=== PATIENT | male | born 1985 | race Caucasian/White ===

== ENCOUNTER → 2016-09-23 | Outpatient (CLI) | payer OTHER ==
--- NOTE | 2016-09-23 07:49 | MR ---
EXAMINATION TYPE: MR lumbar spine wo con DATE OF EXAM: 09/23/2016 7:42 AM COMPARISON: NONE HISTORY: Lumbago, left hip and back pain TECHNIQUE: Multiplanar, multisequence images of the lumbar spine were acquired. L1-L2: Normal disc appearance without desiccation. No herniation, protrusion or disc bulging. No ca nal stenosis is present. Foramina are patent bilaterally. L2-L3: Normal disc appearance without desiccation. No herniation, protrusion or disc bulging. No ca nal stenosis is present. Foramina are patent bilaterally. L3-L4: Normal disc appearance without desiccation. No herniation, protrusion or disc bulging. No ca nal stenosis is present. Foramina are patent bilaterally. L4-L5: There is mild decreased signal ossified compatible with degenerative disc disease. Mild home care nurse ior disc bulge without disc herniation or protrusion. No evidence for central stenosis or foraminal e ncroachment. Superior endplate L5 Schmorl node. L5-S1: Normal disc appearance without desiccation. No herniation, protrusion or disc bulging. No ca nal stenosis is present. Foramina are patent bilaterally. Lumbar segments are intact. No paraspinal masses are identified. Conus medullaris has a normal appe arance. IMPRESSION: Degenerative disc disease with mild posterior disc bulge at L4-5.
== END ==
LOC: RADMRIMAIN 06:52
PROVIDERS: ATTEND Psychiatry & Neurology Neurology
DX: M51.26 Other intervertebral disc displacement, lumbar region (principal); M51.36 Other intervertebral disc degeneration, lumbar region
CPT/HCPCS: 72148

== ENCOUNTER → 2016-10-01 | Outpatient (CLI) | payer OTHER ==
--- NOTE | 2016-10-01 14:35 | XR ---
EXAMINATION TYPE: XR chest 2V DATE OF EXAM: 10/01/2016 2:24 PM COMPARISON: NONE HISTORY: Chest pain TECHNIQUE: Frontal and lateral views of the chest are obtained. FINDINGS: There is no focal air space opacity. No evidence for pnuemothorax.No pleural effusion. The cardiac silhouette size is within normal limits. The osseous structures are grossly intact. IMPRESSION: 1. No acute cardiopulmonary process.
== END ==
LOC: RADXRMAIN 14:11
PROVIDERS: ATTEND Family Medicine
DX: J45.909 Unspecified asthma, uncomplicated (principal)
CPT/HCPCS: 71020; 82043; 83036

== ENCOUNTER 2016-10-17 17:57 | Emergency (ER) | payer OTHER ==
[2016-10-17 18:57] LABS: Glucose,Whole Blood 217 mg/dL (75-99)
[2016-10-17] MEDS ORDERED: SODIUM CHLORIDE 0.9% 1,000 ML IV STA (19:15)
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
[2016-10-17 19:39] LABS: Basophils # (A) 0.1 k/uL (0-0.2); Basophils % (A) 1 %; CH 32.2; CHCM 33.6; Eosinophils # (A) 0.1 k/uL (0-0.7); Eosinophils % (A) 1 %; HCT 56.3 % (39.0-53.0); HDW 2.46; HGB 18.6 gm/dL (13.0-17.5); Luc # (Auto) 0.27; Luc % (Auto) 2; Lymphocytes # (A) 2.6 k/uL (1.0-4.8); Lymphocytes % (A) 22 %; MCH 31.8 pg (25.0-35.0); MCV 96.5 fL (80.0-100.0); Monocytes # (A) 0.8 k/uL (0-1.0); Monocytes % (A) 7 %; Neutrophils # (A) 8.2 k/uL (1.3-7.7); Neutrophils % (A) 68 %; RBC 5.83 m/uL (4.30-5.90); RDW 13.8 % (11.5-15.5); WBC 12.1 k/uL (3.8-10.6); WBC (Perox) 12.18
[2016-10-17 19:47] LABS: ALT 70 U/L (21-72); AST 117 U/L (17-59); Alkaline Phosphatase 34 U/L (38-126); Anion Gap 10 mmol/L; Blood Urea Nitrogen 11 mg/dL (9-20); Calcium 9.4 mg/dL (8.4-10.2); Carbon Dioxide 27 mmol/L (22-30); Chloride 98 mmol/L (98-107); Glucose 218 mg/dL (74-99); Non-African American GFR(MDRD) >60 (>60 ml/min/1.73 sqM); Potassium 5.1 mmol/L (3.5-5.1); Sodium 135 mmol/L (137-145); Total Bilirubin 1.1 mg/dL (0.2-1.3); Total Protein 6.7 g/dL (6.3-8.2)
[2016-10-17 20:58] LABS: Glucose,Whole Blood 193 mg/dL (75-99)
[2016-10-17 21:10] VITALS: BP 135/70; PULSE 76; RESP 18; TEMP 97.5
== END 2016-10-17 21:22 | disposition home or self-care (01) ==
LOC: EC 17:57
DX: I95.1 Orthostatic hypotension (principal); S80.01XA Contusion of right knee, initial encounter; T22.021A Burn of unspecified degree of right elbow, initial encounter; T31.0 Burns involving less than 10% of body surface; M25.569 Pain in unspecified knee; E11.9 Type 2 diabetes mellitus without complications; F41.9 Anxiety disorder, unspecified; F17.200 Nicotine dependence, unspecified, uncomplicated; Z88.6 Allergy status to analgesic agent; Z88.8 Allergy status to other drugs, medicaments and biological substances; Z79.84 Long term (current) use of oral hypoglycemic drugs; Z79.899 Other long term (current) drug therapy; X15.0XXA Contact with hot stove (kitchen), initial encounter; X58.XXXA Exposure to other specified factors, initial encounter
CPT/HCPCS: 16020; 36415; 80053; 84484; 85025; 93005; 96360; 96361; 99284

== ENCOUNTER 2018-03-26 14:22 | Emergency (ER) | payer BC, OTHER ==
[2018-03-26 14:37] VITALS: BP 143/92; TEMP 99
[2018-03-26] MEDS ORDERED: IPRATROPIUM-ALBUTEROL 3 ML NEB INHALATION ONE (15:09)
[2018-03-26] MEDS ORDERED: predniSONE 20 MG TAB PO STA (15:11)
--- NOTE | 2018-03-26 15:17 | ED ---
General Adult HPI - General Chief complaint: Upper Respiratory Infection Stated complaint: Congested, Body Aches-sent by [facility] [employer] Time Seen by Provider: 03/26/18 15:01 Source: patient Mode of arrival: ambulatory Limitations: no limitations - History of Present Illness Initial comments: 32-year-old male presents with a chief complaint of an upper respiratory infection since Thursday. Patient denies any sick contacts and states she cannot identify inciting incident. Patient states that he has been somewhat short of breath and has had a productive cough with green sputum. He denies any fever though he states he has had chills. Patient is a pack per day smoker , has a medical history of diabetes type 2, hypertension, and hyperlipidemia. No history of heart attacks or strokes - Related Data Home Medications Medication Instructions Recorded Confirmed ALPRAZolam [Xanax] 1 tab PO TID 08/03/15 03/26/18 metFORMIN HCL [Glucophage] 500 mg PO BID 10/17/16 03/26/18 Lisinopril [Prinivil] 5 mg PO DAILY 03/26/18 03/26/18 Rosuvastatin Calcium [Crestor] 10 mg PO DAILY 03/26/18 03/26/18 Previous Rx's Medication Instructions Recorded Albuterol Inhaler [Ventolin Hfa 1 - 2 puff INHALATION Q4H #1 03/26/18 Inhaler] inhaler Doxycycline Hyclate 100 mg PO Q12H 7 Days #13 tab 03/26/18 predniSONE 60 mg PO DAILY 4 Days #12 tab 03/26/18 Allergies Allergy/AdvReac Type Severity Reaction Status Date / Time sulfamethoxazole Allergy Unknown Verified 03/26/18 14:54 [From Bactrim] trimethoprim [From Bactrim] Allergy Unknown Verified 03/26/18 14:54 ibuprofen [From Motrin] AdvReac Muscle Verified 03/26/18 14:54 Spasm naproxen AdvReac Nausea & Verified 03/26/18 14:54 Vomiting Review of Systems ROS Statement: Those systems with pertinent positive or pertinent negative responses have been documented in the HPI. ROS Other: All systems not noted in ROS Statement are negative. Respiratory: Reports: cough Cardiovascular: Reports: dyspnea on exertion Musculoskeletal: Reports: myalgia Past Medical History Past Medical History: Diabetes Mellitus, Hyperlipidemia, Hypertension History of Any Multi-Drug Resistant Organisms: None Reported Additional Past Surgical History / Comment(s): hip surgery Past Anesthesia/Blood Transfusion Reactions: Unable to Obtain Past Psychological History: Anxiety Smoking Status: Current every day smoker Past Alcohol Use History: None Reported Past Drug Use History: None Reported General Exam Limitations: no limitations General appearance: alert, in no apparent distress Head exam: Present: atraumatic, normocephalic Eye exam: Present: normal appearance ENT exam: Present: normal exam, mucous membranes moist, TM's normal bilaterally Neck exam: Present: normal inspection Respiratory exam: Present: wheezes. Absent: respiratory distress Cardiovascular Exam: Present: regular rate, normal rhythm GI/Abdominal exam: Present: soft. Absent: distended, tenderness Rectal exam: Present: deferred Extremities exam: Present: normal inspection Back exam: Present: normal inspection Neurological exam: Present: alert, oriented X3 Psychiatric exam: Present: normal affect, normal mood Skin exam: Present: warm, dry, intact Course Vital Signs 03/26/18 03/26/18 03/26/18 14:33 15:21 15:53 Temperature 99 F Pulse Rate 98 90 88 Respiratory 16 20 18 Rate Blood Pressure 143/92 O2 Sat by Pulse 94 L Oximetry 03/26/18 18:00 Temperature Pulse Rate Respiratory Rate Blood Pressure O2 Sat by Pulse 94 L Oximetry Medical Decision Making - Medical Decision Making Patient presents with a chief complaint of cough and shortness of breath. On initial evaluation, vital signs are stable though oxygen saturation is 94 on room air. Patient be evaluated with EKG, basic labs, troponin. Patient given breathing treatments and steroids. Patient was sent over by [facility], will review x-ray performed of there. EKG performed at 1528 shows NSR with a rate of 77 bpm. segments appear to be within normal limits, though EKG computed read shows a MI interval of 110. patient without history of palpitations, or family history of cardiac arrhythmia. no signs of wpw, brugada, long QT, or LVH on ekg. 5:15PM CXR from [facility] uploaded. independent review of the image shows a questionable infiltrate in the RLL possibly representing pneumonia. on re-evaluation, patient appears comfortable. mildly improved after breathing treatments and steroids. will ambulate patient to evaluate pulse ox. patient started on doxycycline 6:10 PM Evaluation this patient shows a mildly elevated white count but is otherwise unremarkable. Chest x-ray reviewed. Patient ambulated without shortness of breath. He had a pulse ox of 91% while ambulated, and a pulse ox of 94% when he sat back down. Patient offered a computed tomography scan for better evaluation of the lungs and to evaluate for PE though I think this is unlikely. Patient declining at this time. He was instructed to follow up with primary care in 1-2 days, return to the emergency department if symptoms worsen or change. He was prescribed doxycycline, prednisone, and albuterol inhaler. - Lab Data Result diagrams: 03/26/18 16:00 03/26/18 16:00 Lab Results 03/26/18 03/26/18 03/26/18 Range/Units 16:00 16:00 16:00 WBC 11.7 H (3.8-10.6) k/uL RBC 5.31 (4.30-5.90) m/uL Hgb 16.6 (13.0-17.5) gm/dL Hct 50.7 (39.0-53.0) % MCV 95.5 (80.0-100.0) fL MCH 31.3 (25.0-35.0) pg MCHC 32.7 (31.0-37.0) g/dL RDW 13.2 (11.5-15.5) % Plt Count 287 (150-450) k/uL Neutrophils % 71 % Lymphocytes % 18 % Monocytes % 6 % Eosinophils % 3 % Basophils % 1 % Neutrophils # 8.3 H (1.3-7.7) k/uL Lymphocytes # 2.1 (1.0-4.8) k/uL Monocytes # 0.7 (0-1.0) k/uL Eosinophils # 0.3 (0-0.7) k/uL Basophils # 0.1 (0-0.2) k/uL Sodium 141 (137-145) mmol/L Potassium 4.4 (3.5-5.1) mmol/L Chloride 104 (98-107) mmol/L Carbon Dioxide 24 (22-30) mmol/L Anion Gap 13 mmol/L BUN 9 (9-20) mg/dL Creatinine 0.92 (0.66-1.25) mg/dL Est GFR (CKD-EPI)AfAm >90 (>60 ml/min/1.73 sqM) Est GFR (CKD-EPI)NonAf >90 (>60 ml/min/1.73 sqM) Glucose 300 H (74-99) mg/dL Calcium 9.7 (8.4-10.2) mg/dL Troponin I <0.012 (0.000-0.034) ng/mL Disposition Clinical Impression: Pneumonia Disposition: HOME SELF-CARE Condition: Good Instructions: Upper Respiratory Infection (ED) Prescriptions: Albuterol Inhaler [Ventolin Hfa Inhaler] 1 - 2 puff INHALATION Q4H #1 inhaler Doxycycline Hyclate 100 mg PO Q12H 7 Days #13 tab predniSONE 60 mg PO DAILY 4 Days #12 tab Is patient prescribed a controlled substance at d/c from ED?: No Referrals: Kev Traore MD [Primary Care Provider] - 1-2 days
[2018-03-26 15:54] VITALS: PULSE 88; RESP 18
[2018-03-26 16:13] LABS: Basophils # (A) 0.1 k/uL (0-0.2); Basophils % (A) 1 %; Eosinophils # (A) 0.3 k/uL (0-0.7); Eosinophils % (A) 3 %; HCT 50.7 % (39.0-53.0); HGB 16.6 gm/dL (13.0-17.5); Lymphocytes # (A) 2.1 k/uL (1.0-4.8); Lymphocytes % (A) 18 %; MCH 31.3 pg (25.0-35.0); MCHC 32.7 g/dL (31.0-37.0); MCV 95.5 fL (80.0-100.0); Mean Platelet Volume 7.1; Monocytes # (A) 0.7 k/uL (0-1.0); Monocytes % (A) 6 %; Neutrophils # (A) 8.3 k/uL (1.3-7.7); Neutrophils % (A) 71 %; Platelet Count 287 k/uL (150-450); RBC 5.31 m/uL (4.30-5.90); RDW 13.2 % (11.5-15.5); WBC 11.7 k/uL (3.8-10.6)
[2018-03-26] MEDS ORDERED: IBUPROFEN 800 MG TAB PO STA (16:13)
[2018-03-26] MEDS ORDERED: ACETAMINOPHEN TAB 500 MG TAB PO STA (16:13)
[2018-03-26 16:39] LABS: Anion Gap 13 mmol/L; Blood Urea Nitrogen 9 mg/dL (9-20); Calcium 9.7 mg/dL (8.4-10.2); Carbon Dioxide 24 mmol/L (22-30); Chloride 104 mmol/L (98-107); Glucose 300 mg/dL (74-99); Potassium 4.4 mmol/L (3.5-5.1); Sodium 141 mmol/L (137-145)
[2018-03-26] MEDS ORDERED: DOXYCYCLINE 100 MG CAP PO STA (17:17)
== END 2018-03-26 18:35 | disposition home or self-care (01) ==
LOC: EC 14:22
DX: J18.9 Pneumonia, unspecified organism (principal); E11.9 Type 2 diabetes mellitus without complications; E78.5 Hyperlipidemia, unspecified; I10 Essential (primary) hypertension; F41.9 Anxiety disorder, unspecified; F17.210 Nicotine dependence, cigarettes, uncomplicated; Z79.84 Long term (current) use of oral hypoglycemic drugs; Z79.899 Other long term (current) drug therapy; Z88.2 Allergy status to sulfonamides; Z88.6 Allergy status to analgesic agent
CPT/HCPCS: 36415; 94644; 93005; 80048; 84484; 85025; 99284; J7512

== ENCOUNTER 2022-03-13 10:04 | Day surgery (SDC) | payer OTHER ==
[2022-03-11 14:47] VITALS: BMI 25.4
[~2022-03-13 10:04] MED LIST: HEPARIN SODIUM,PORCINE/PF 5,000 UNIT/0.5 ML SYRINGE SQ PRN; LACTATED RINGERS 1,000 ML IV SCH; Pre Op ABX Message 1 EACH MISC MISCELLANE ONE
--- NOTE | 2022-03-13 10:33 | P.GSHP ---
History of Present Illness H&P Date: 03/13/22 CHIEF COMPLAINT: Back mass HISTORY OF PRESENT ILLNESS: The patient is a 36 year-old male with history of mass along the mid back. He presents today for surgical excision. PAST MEDICAL HISTORY: Please see list. PAST SURGICAL HISTORY: Please see list. MEDICATIONS: Please see list. ALLERGIES: Please see list. SOCIAL HISTORY: Please see list. FAMILY HISTORY: No reports of Crohn disease or ulcerative colitis. REVIEW OF ORGAN SYSTEMS: CONSTITUTIONAL: No reports of fevers or chills. GI: Denies any blood in stools or constipation. PHYSICAL EXAM: VITAL SIGNS: Stable Musculoskeletal: No clubbing cyanosis or edema SKIN: Mid back lesion 3 cm GENERAL: Well developed and in no acute distress. Pleasant. HEENT: No sclera icterus. Extraocular movements grossly intact. Moist buccal mucosa. Head is atraumatic, normocephalic. Hears conversational speech. No nasal drainage. NECK: Supple without lymphadenopathy. No JV distention. CHEST: Non-labored respirations and equal bilateral excursions. CARDIOVASCULAR: Regular rate and rhythm. Palpable 2+ radial pulses. ABDOMEN: Soft. Non-tender. Nondistended. NEUROLOGIC: No focal or lateralizing signs. PSYCH: Appropriate affect. Alert and oriented to person, place and time. ASSESSMENT: 1. Mid back mass PLAN: 1. Will proceed of excision of subcutaneous tumor along the back. 2. DVT prophylaxis. 3. Antibiotic prophylaxis. 4. Time of recovery, at least one week. Past Medical History Past Medical History: Diabetes Mellitus, GERD/Reflux, Hyperlipidemia, Hypertension, Skin Disorder Additional Past Medical History / Comment(s): Psoriasis. History of Any Multi-Drug Resistant Organisms: None Reported Past Surgical History: Orthopedic Surgery Additional Past Surgical History / Comment(s): Bilateral hip surgery. Past Anesthesia/Blood Transfusion Reactions: No Reported Reaction Additional Past Anesthesia/Blood Transfusion Reaction / Comment(s): Mom PONV. Past Psychological History: Anxiety Smoking Status: Current every day smoker Past Alcohol Use History: Occasional Additional Past Alcohol Use History / Comment(s): Smokes 1 pdd since age 17. Past Drug Use History: None Reported - Past Family History Mother Family Medical History: No Reported History Medications and Allergies Home Medications Medication Instructions Recorded Confirmed Type Rosuvastatin Calcium [Crestor] 10 mg PO DAILY 03/26/18 03/11/22 History FLUoxetine HCL [PROzac] 10 mg PO DAILY 03/11/22 03/11/22 History Ixekizumab [Taltz Syringe] 80 mg SQ Q30D 03/11/22 03/11/22 History Multivitamins, Thera [Multivitamin 1 tab PO DAILY 03/11/22 03/11/22 History (formulary)] Omeprazole 20 mg PO DAILY 03/11/22 03/11/22 History Tirzepatide [Mounjaro] 5 mg SQ TH 03/11/22 03/11/22 History Allergies Allergy/AdvReac Type Severity Reaction Status Date / Time sulfamethoxazole Allergy Unknown Verified 03/11/22 14:33 [From Bactrim] trimethoprim [From Bactrim] Allergy Unknown Verified 03/11/22 14:33 ibuprofen [From Motrin] AdvReac Muscle Verified 03/11/22 14:33 Spasm naproxen AdvReac Nausea & Verified 03/11/22 14:33 Vomiting
[2022-03-13] MEDS ORDERED: ACETAMINOPHEN TAB 500 MG TAB PO STA (10:35)
[2022-03-13 10:43] LABS: Glucose,Whole Blood 107 mg/dL (70-110)
[2022-03-13] MEDS ORDERED: ACETAMINOPHEN TAB 500 MG TAB PO ONE (10:53)
[2022-03-13 11:29] LABS: Basophils # (A) 0.1 k/uL (0-0.2); Basophils % (A) 1 %; Eosinophils # (A) 0.3 k/uL (0-0.7); Eosinophils % (A) 2 %; HCT 53.4 % (39.0-53.0); HGB 17.9 gm/dL (13.0-17.5); Lymphocytes % (A) 20 %; MCH 31.2 pg (25.0-35.0); MCHC 33.6 g/dL (31.0-37.0); MCV 92.9 fL (80.0-100.0); Mean Platelet Volume 8.1; Monocytes # (A) 0.7 k/uL (0-1.0); Monocytes % (A) 6 %; Neutrophils # (A) 7.2 k/uL (1.3-7.7); Neutrophils % (A) 69 %; Platelet Count 275 k/uL (150-450); RBC 5.75 m/uL (4.30-5.90); RDW 13.4 % (11.5-15.5); WBC 10.4 k/uL (3.8-10.6)
[2022-03-13] MEDS ORDERED: SUCCINYLCHOLINE CHLORIDE 200 MG/10 ML VIAL IV ONE (12:05)
[2022-03-13] MEDS ORDERED: PROPOFOL 10 MG/ML 20 ML VIAL IV ONE (12:05)
[2022-03-13] MEDS ORDERED: LIDOCAINE 2% INJ 20 MG/ML (2 ML VIAL) ONE (12:05)
[2022-03-13] MEDS ORDERED: MIDAZOLAM 2 MG/2 ML VIAL ONE (12:05)
[2022-03-13] MEDS ORDERED: fentaNYL (PF) 50 MCG/ML 2 ML AMP ONE (12:05)
[2022-03-13] MEDS ORDERED: LIDOCAINE 1%-EPI 1:100,000 20 ML VIAL SQ ONE (12:54)
[2022-03-13 13:26] VITALS: TEMP 97
[2022-03-13] MEDS ORDERED: KETOROLAC 15 MG/ML 1 ML VIAL IVP SCH (13:30)
[2022-03-13 13:37] VITALS: RESP 18
--- NOTE | 2022-03-13 14:10 | P.OP ---
Date of Procedure: 03/13/22 Description of Procedure: SURGEON: SADAF LANE MD MANAGER EPIC: None. PREOPERATIVE DIAGNOSES: 1. Lower back mass 2. Diabetes type 2 3. Depressive disorder 4. Tobacco abuse disorder 5. Hyperlipidemia 6. Hypertensive heart disease 7. Gastroesophageal reflux disease POSTOPERATIVE DIAGNOSES: 1. Deep subcutaneous mid lower back tumor, 7 x 3 cm 2. Diabetes type 2 3. Depressive disorder 4. Tobacco abuse disorder 5. Hyperlipidemia 6. Hypertensive heart disease 7. Gastroesophageal reflux disease PROCEDURES PERFORMED: 1. Excision of deep subcutaneous mid lower back mass, 7 x 3 cm 2. Intermediate closure mid lower back incision, 8-cm Anesthesia: GETA, local Estimated Blood Loss (ml): 5 Pathology: other (back mass) Condition: stable Disposition: same day COMPLICATIONS: None. Operative Findings: 1. Excision of deep subcutaneous lower back epidermoid cyst 7 x 3 cm INDICATIONS: The patient is a 36-year-old male who presents with symptomatic mid lower back tumor. Benefits and risks of surgical intervention were described including bleeding, infection, seroma, pain and recurrence. Informed consent was obtained. DESCRIPTION OR PROCEDURE: In the preoperative area, the area of concern was marked with indelible marker. Patient was brought into the operating room. After general induction, he was positioned in left lateral decubitus position. The back was prepped and draped in a standard sterile fashion with ChloraPrep. Timeout protocol was confirmed with the surgical team regarding the patient's name, procedure to be performed including preoperative medications. DVT prophylaxis was confirmed. A field block was placed of the lower back. An transverse elliptical incision using #15 blade was made along the marking into the dermis and subcutaneous tissue. Electro-Bovie cautery was used to enter deep into the subcutaneous tissue were ruptured cyst with cheesy substance was removed in total of 7 x 3 cm. 0 Vicryl for the deep subcutaneous tissue was placed in interrupted fashion. 3-0 Monocryl in a running subcuticular fashion was placed along the dermis. The skin was cleansed and Exofin tape with liquid was applied for a four layer closure. The incision was covered with Optifoam dressing. At the end of the procedure, needle, sponge, and instrument count was verified correct by surgical oncologist. The patient tolerated the procedure well. Plan - Discharge Summary Discharge Rx Participant: No New Discharge Prescriptions: New Cyclobenzaprine [Flexeril] 10 mg PO TID PRN #30 tab PRN Reason: Pain Acetaminophen Tab [Tylenol Tab] 1,000 mg PO Q6HR PRN #30 tablet PRN Reason: Pain Continue Rosuvastatin Calcium [Crestor] 10 mg PO DAILY FLUoxetine HCL [PROzac] 10 mg PO DAILY Tirzepatide [Mounjaro] 5 mg SQ TH Omeprazole 20 mg PO DAILY Multivitamins, Thera [Multivitamin (formulary)] 1 tab PO DAILY Ixekizumab [Taltz Syringe] 80 mg SQ Q30D Discharge Medication List Rosuvastatin Calcium [Crestor] 10 mg PO DAILY 03/26/18 [History] FLUoxetine HCL [PROzac] 10 mg PO DAILY 03/11/22 [History] Ixekizumab [Taltz Syringe] 80 mg SQ Q30D 03/11/22 [History] Multivitamins, Thera [Multivitamin (formulary)] 1 tab PO DAILY 03/11/22 [History] Omeprazole 20 mg PO DAILY 03/11/22 [History] Tirzepatide [Mounjaro] 5 mg SQ TH 03/11/22 [History] Acetaminophen Tab [Tylenol Tab] 1,000 mg PO Q6HR PRN #30 tablet 03/13/22 [Rx] Cyclobenzaprine [Flexeril] 10 mg PO TID PRN #30 tab 03/13/22 [Rx] Follow up Appointment(s)/Referral(s): Sadaf Lane MD [STAFF PHYSICIAN] - 03/18/22 Patient Instructions/Handouts: Excision of Skin Lesion (DC) Discharge Disposition: HOME SELF-CARE
[2022-03-13 14:31] VITALS: BP 160/91; PULSE 79
== END 2022-03-13 14:51 | disposition home or self-care (01) ==
LOC: OR 10:04
PROVIDERS: ATTEND Surgery Plastic and Reconstructive Surgery
DX: L72.0 Epidermal cyst (principal); E11.9 Type 2 diabetes mellitus without complications; F32.A Depression, unspecified; E78.5 Hyperlipidemia, unspecified; I11.9 Hypertensive heart disease without heart failure; K21.9 Gastro-esophageal reflux disease without esophagitis; Z87.2 Personal history of diseases of the skin and subcutaneous tissue; F41.9 Anxiety disorder, unspecified; F17.210 Nicotine dependence, cigarettes, uncomplicated; Z86.59 Personal history of other mental and behavioral disorders; Z79.899 Other long term (current) drug therapy
CPT/HCPCS: 88304; 85025; 11406; 12032; J2250; J0330; J0690; J3010; J2704; J1644; J2001

== ENCOUNTER → 2022-10-18 | Outpatient (CLI) | payer OTHER ==
--- NOTE | 2022-10-18 10:58 | XR ---
EXAMINATION TYPE: XR chest 2V DATE OF EXAM: 10/18/2022 COMPARISON: Chest x-ray October 01, 2016 HISTORY: Other long-term drug therapy per order. 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 On medication for psoriasis. TECHNIQUE: Frontal and lateral views of the chest are obtained. FINDINGS: There is no focal air space opacity, pleural effusion, or pneumothorax seen. The cardiac silhouette size is stable and within normal limits. The osseous structures are intact. IMPRESSION: No acute cardiopulmonary process. No significant change from prior.
== END | disposition home or self-care (01) ==
LOC: RADXRMAIN 10:35
PROVIDERS: ATTEND Physician Assistant
DX: L40.9 Psoriasis, unspecified (principal); R76.11 Nonspecific reaction to tuberculin skin test without active tuberculosis; Z79.899 Other long term (current) drug therapy
CPT/HCPCS: 71046